=== PATIENT | male | born 2000 | race Caucasian/White ===

== ENCOUNTER 2021-08-18 11:09 | Emergency (ER) | payer MEDICAID, SELFPAY ==
[2021-08-18 11:13] VITALS: BP 154/68; PULSE 70; RESP 14; TEMP 36.6; O2SAT 98
--- NOTE | 2021-08-18 12:00 | DI.CT_ITS ---
Exam(s) CT HEAD WO EXAM: CT HEAD WO CLINICAL HISTORY: struck head, RINALDI x 3 days. TECHNIQUE: Imaging Protocol: Axial computed tomography images with coronal and sagittal reformatted images were created and reviewed COMPARISON: No exams were available for comparison FINDINGS: There are no skull fractures nor fluid in the visualized paranasal sinuses. Mucosal thickening is n oted maxillary, not associated with fluid levels therein. There is no evidence of intracranial hemorrhage, mass effect, or shift of midline structures. There are no extra-axial fluid collections. The ventricles are not enlarged or shifted and there is no blo od within the ventricular system nor within the basal cisterns. IMPRESSION: No acute intracranial findings on this noninfused CT scan of the brain. RADIATION DOSE DELIVERED: 910.41mGy.cm Total DLP DATA REPOSITORY: All CT scans at this facility are submitted to the National Radiology Data Registry (NRDR) Dose Index Registry (DIR) with the [employer] ([employer]). RADIATION OPTIMIZATION: All CT scans at this facility use at least one of these dose optimization te chniques: automated exposure control; mA and/or kV adjustment per patient size (includes targeted exa ms where dose is matched to clinical indication); or iterative reconstruction.
--- NOTE | 2021-08-18 12:12 | ED.GENADUL_ITS ---
Discharge Plan Disposition Patient Disposition: HOME Condition: Stable Discharge Details Clinical Impression: Cough, Head injury Primary Care Provider: Shelli Joyner ED Provider: Darrius Clement Home Meds and New Rx's Prescriptions: New albuterol sulfate 90 mcg/actuation aerosol powdr breath activated 2 inh inhalation Q6H PRNQty: 1 0RF Continued Mini's wort 300 mg capsule 300 mg PO DAILY cholecalciferol (vitamin D3) 10,000 UNIT tablet 10,000 unit PO Q7D ibuprofen 600 MG tablet 600 mg .Route .DM PRN0RF Discontinued albuterol sulfate [ProAir HFA] 200 PUFF HFA aerosol inhaler 2 puff Inhalation Q4H PRN PRN Discharge Instructions Instructions: Acute Cough (ED), Head Injury (ED) Additional Instructions: Chest x-ray and head CT were both unremarkable. COVID test is pending, you will be notified whether the test is positive or negative. Albuterol inhaler as directed. Mekz-qql-hsroalp medications as directed for symptomatic control. Please watch for new or worsening symptoms and return to the ER for any concerns. Otherwise I recommend contacting your primary care provider to discuss your ER visit and need for outpatient reevaluation. Medical Decision Making This is a 20-year-old male, denies significant past medical history presenting to the ER with a dry cough for the past 7 days as well as a head injury 3 days ago, now with a persistent headache. Clinically he appears well, nontoxic, neurologically intact, afebrile. Plan is to obtain head CT given his head injury and headache. Will obtain a COVID swab send out, and a chest x-ray to rule out pneumonia. Head CT and chest x-ray negative. COVID swab pending. Discussed work-up with patient. Plan to provide albuterol inhaler for his likely viral bronchitis. We did discuss treating with [id number] medication. No clear indication for antibiotic therapy Standard discharge and return precautions were provided. Patient understands, is agreeable to this plan, and has no additional questions or concerns upon discharge. This documentation was generated using [employer] system, please disregard any oddities of phrase or misspellings. Medical Records Medical records reviewed: Yes I reviewed the patient's medical records. Imaging Data Radiologic Study: Attestation: I personally reviewed and interpreted this imaging study as follows: Imaging: X-Ray Radiologist's impression: Exam(s) XR PORTABLE CHEST AP EXAM: XR PORTABLE CHEST AP CLINICAL HISTORY: cough. TECHNIQUE: 2D digital imaging was performed. COMPARISON: No exams were available for comparison FINDINGS: Single AP portable view. Heart size is upper normal. The mediastinum is not widened. Lungs are clear. No infiltrates nor obvious pleural effusions. IMPRESSION: No acute pulmonary findings on this single AP portable view of the chest. Radiologic Study #2: Attestation: I personally reviewed and interpreted this imaging study as follows: Imaging: CT Scan Radiologist's impression: EXAM: CT HEAD WO CLINICAL HISTORY: struck head, RINALDI x 3 days. TECHNIQUE: Imaging Protocol: Axial computed tomography images with coronal and sagittal reformatted images were created and reviewed COMPARISON: No exams were available for comparison FINDINGS: There are no skull fractures nor fluid in the visualized paranasal sinuses. Mucosal thickening is noted maxillary, not associated with fluid levels therein. There is no evidence of intracranial hemorrhage, mass effect, or shift of midline structures. There are no extra-axial fluid collections. The ventricles are not enlarged or shifted and there is no blood within the ventricular system nor within the basal cisterns. IMPRESSION: No acute intracranial findings on this noninfused CT scan of the brain. HPI General Mode of arrival: ambulatory . Date/Time Provider Initiated Documentation: 08/18/21 11:25 . Limitations to Documentation: no limitations . Information obtained by: patient . HPI Narrative: 20-year-old gentleman, denies significant past medical history, presents to the ER reporting a dry cough for approximately 1 week and then a head injury 3 days ago with a continuous headache since that time, worse with coughing. Patient states that he is fully vaccinated and has taken negative COVID test at home. He reports that a neighbor was recently diagnosed with bronchitis. He denies ear pain, nasal congestion, fever. He states 3 days ago he hit his head hard on a garage door, fall black, did not necessarily pass out but has had a persistent headache ever since, moderate in nature worse with coughing. Has not taken any pycz-tic-occirjr medication for his symptoms Related Data Home Medications Medication Instructions Recorded Confirmed cholecalciferol (vitamin D3) 250 10,000 unit PO Q7D 05/26/16 08/18/21 mcg (10,000 unit) tablet ibuprofen 600 mg tablet 600 mg .Route .DM PRN 05/08/17 08/18/21 Mini's wort 300 mg capsule 300 mg PO DAILY 07/13/21 08/18/21 albuterol sulfate 90 mcg/actuation 2 inh inhalation Q6H PRN #1 ea 08/18/21 breath activated powder inhaler Previous Rx's Medication Instructions Recorded ibuprofen 600 mg tablet 600 mg .Route .DM PRN 05/08/17 albuterol sulfate 90 mcg/actuation 2 inh inhalation Q6H PRN #1 ea 08/18/21 breath activated powder inhaler Allergies Allergy/AdvReac Type Severity Reaction Status Date / Time No Known Allergies Allergy Unverified 08/18/21 11:16 General Stated Complaint: Headache EMELY: 3 Review of Systems Constitutional Constitutional: Reports headache(s) and Denies weakness Eyes Eyes: Denies change in vision ENT Ears, Nose, Mouth, and Throat: Reports headache(s), Denies neck pain and Denies sore throat Cardiovascular Cardiovascular: Denies chest pain and Denies dyspnea Respiratory Respiratory: Reports cough and Denies dyspnea Gastrointestinal Gastrointestinal: Denies abdominal pain, Denies nausea and Denies vomiting Musculoskeletal Musculoskeletal: Denies back pain, Denies neck pain, Denies numbness and Denies tingling Integumentary/Breasts Skin/Breast: Denies rash Neurologic Neurologic: Reports headache(s), Denies numbness, Denies tingling and Denies weakness PFSH All Active Problems (Updated 08/18/21 @ 13:08 by OCTAVIO Matute) Cough (Acute) Head injury (Acute) Medical History Abnormal posture ADD (attention deficit disorder) Allergic rhinitis Asthma Costochondritis Depression Elevated blood pressure reading Hemorrhoid Migraines Obesity Perioral dermatitis Sleep disorder Thumb fracture Urinary urgency Vitamin D deficiency Social History Smoking/Tobacco Use Status: Never Smoking risk assessment performed?: Yes Alcohol Intake: current Alcohol Intake frequency: holidays/special occasions only Alcohol type: beer and hard liquor Drug use: Daily Substance use type: marijuana Do you feel safe at home: Yes Do you feel safe in your relationship?: Yes Exam Const General: cooperative, healthy appearing, comfortable and no acute distress Orientation: alert, awake and oriented x3 HENMT Head: normal to inspection, normocephalic and atraumatic General nose exam: external nose normal Face and sinus: normal facial exam Mouth: moist mucous membranes Throat: posterior oropharynx normal Eyes General: appearance normal, both eyes and all related structures Conjunctivae: conjunctivae normal Neck Neck: normal visual inspection, full ROM, trachea midline and supple Resp Effort & Inspection: normal respiratory effort, able to speak in complete sentences and cough (Mild, dry) Auscultation: wheezes (Rare, scattered throughout. Clear with cough) Cardio Rate: regular rate Rhythm: regular rhythm GI Palpation: soft and nontender Back/Spine/Pelvis Back: No back tenderness Skin General skin exam: no rashes or lesions noted Neuro General: patient alert, patient awake, patient oriented x3, moves all extremities and no focal motor deficits Cognition: normal cognition Speech: speech normal Gait: normal gait Motor: muscle tone normal throughout Sensory Exam: no sensory deficits noted Extrem General: normal to inspection, full ROM, capillary refill normal, no pedal edema and no calf tenderness Psych Appearance: grossly normal Mental Status: mental status grossly normal Course Vital Signs Vital signs: Vital Signs Temperature 36.6 C 08/18/21 11:13 Pulse 70 08/18/21 11:13 Respiratory Rate 14 08/18/21 11:13 Blood Pressure 154/68 H 08/18/21 11:13 Pulse Oximetry 98 08/18/21 11:13 Temperature 36.6 C 08/18/21 11:13 Temperature Source Temporal Artery Scan 08/18/21 11:13 Pulse 70 08/18/21 11:13 Respiratory Rate 14 08/18/21 11:13 Respiratory Effort Non-Labored 08/18/21 11:16 Blood Pressure 154/68 H 08/18/21 11:13 Blood Pressure Position Supine 08/18/21 11:13 Pulse Oximetry 98 08/18/21 11:13 Oxygen Delivery Method Room Air 08/18/21 11:13 Oxygen Flow Rate 0 08/18/21 11:13 Pain Level 4 08/18/21 11:16 PAWSS Have you Been Recently Intoxicated or Drunk Within the Last 30 days?: Yes Have you Ever Experienced Previous Episodes of Alcohol Withdrawal?: No Have you ever Experienced Withdrawal Seizures?: No Have you ever Experienced Delirium Tremens(DT)s?: No Have you ever undergone Alcohol Rehabilitation Treatment (i.e, inpt ot outpatient treatment programs)?: No Have you ever Experienced Blackouts?: No Have you ever Combined Alcohol with other Downers within the last 90 days?: No Have you ever Combined Alcohol with any other Substance of Abuse during the last 90 days?: No Positive Blood Alcohol level on Presentation? [PCS.BAL]: No Evidence of Increased Autonomic Activity (i.e. HR>120, tremor, sweating, agitation, nausea)?: No Result: 1
--- NOTE | 2021-08-18 12:48 | DI.RAD_ITS ---
Exam(s) XR PORTABLE CHEST AP EXAM: XR PORTABLE CHEST AP CLINICAL HISTORY: cough. TECHNIQUE: 2D digital imaging was performed. COMPARISON: No exams were available for comparison FINDINGS: Single AP portable view. Heart size is upper normal. The mediastinum is not widened. Lungs are clear. No infiltrates nor obvious pleural effusions. IMPRESSION: No acute pulmonary findings on this single AP portable view of the chest. DATA REPOSITORY: RADIATION DOSE DELIVERED: All CT scans at this facility use at least one of these dose optimization techniques: automated exposure control; mA and/or kV adjustment per patient size (includes targeted e xams where dose is matched to clinical indication); or iterative reconstruction.
[2021-08-19 15:22] LABS: COVID-19 RT-PCR UVMMC Result Negative (Negative)
== END 2021-08-18 13:17 | disposition home or self-care (01) ==
PROVIDERS: Emergency Provider Physician Assistant; PCP Physician Assistant Medical
DX: R05.1 Acute cough (principal); S09.8XXA Other specified injuries of head, initial encounter
CPT/HCPCS: 99283; 99284; U0003; 70450; 71045

== ENCOUNTER 2023-06-11 10:15 | Emergency (ER) | payer MEDICAID, SELFPAY ==
[2023-06-11 10:26] VITALS: BP 131/56; PULSE 82; RESP 16; TEMP 36.6; O2SAT 100
--- NOTE | 2023-06-11 10:27 | ED.GENADUL_ITS ---
Discharge Plan Disposition Patient Disposition: Home Condition: Stable Discharge Details Clinical Impression: Tick bite of axillary region Primary Care Provider: Shelli Joyner ED Provider: Tatiana Fleming Home Meds and New Rx's Prescriptions: No Action ibuprofen 600 mg tablet 600 mg PO .DM PRN Mini's wort 300 mg capsule 300 mg PO DAILY cholecalciferol (vitamin D3) 10,000 UNIT tablet 10,000 unit PO Q7D albuterol sulfate 90 mcg/actuation aerosol powdr breath activated 2 inh inhalation Q6H PRNQty: 1 0RF Discharge Instructions Instructions: Tick Bite (ED) Additional Instructions: You were given 200mg Doxycycline as a prevenative treatment for the tick bite. Please keep the area clean. Return to the ER for any body aches, chest pain, spreading rash, fever or concerns. Follow up with primary care provider in 3-5 days. Return to ED sooner if any worsening or concerns. Please take Tylenol or Ibuprofen with food every 4-6 hours as needed for pain and swelling. Referrals: Shelli Joyner [Primary Care Provider] - Return if symptoms worsen Discharge Data Discharge Date/Time-TO BE ENTERED AT DEPARTURE: 06/11/23 10:38 HPI General Mode of arrival: ambulatory . Date/Time Provider Initiated Documentation: 06/11/23 10:24 . Limitations to Documentation: no limitations . Information obtained by: patient, RN notes reviewed and old records reviewed . HPI Narrative: Patient here with a tick embedded behind his right axilla. There is small surrounding redness. Reports he was working out in the yard today. History of ADD migraines asthma depression. Will treat prophylactically with 200 mg doxycycline. Discussed on home care. Related Data Home Medications Medication Instructions Recorded Confirmed cholecalciferol (vitamin D3) 250 10,000 unit PO Q7D 05/26/16 06/11/23 mcg (10,000 unit) tablet Mini's wort 300 mg capsule 300 mg PO DAILY 07/13/21 06/11/23 albuterol sulfate 90 mcg/actuation 2 inh inhalation Q6H PRN #1 ea 08/18/21 06/11/23 breath activated powder inhaler ibuprofen 600 mg tablet 600 mg PO .DM PRN 10/19/21 06/11/23 Previous Rx's Medication Instructions Recorded albuterol sulfate 90 mcg/actuation 2 inh inhalation Q6H PRN #1 ea 08/18/21 breath activated powder inhaler Allergies Allergy/AdvReac Type Severity Reaction Status Date / Time No Known Allergies Allergy Unverified 06/11/23 10:25 General EMELY: 3 Review of Systems All systems reviewed & are unremarkable except as noted in HPI and below Integumentary/Breasts Skin/Breast: Reports as per HPI, Reports erythema, Reports rash, Reports skin pain, Reports skin swelling and Reports other (Tick bite behind right axilla) Exam Skin Rashes: rashes noted macules right posterior axilla Trauma: puncture Full body images: 2 1. Embedded tick Medical Decision Making Patient here with a tick embedded behind his right axilla. There is small surrounding redness. Reports he was working out in the yard today. History of ADD migraines asthma depression. Will treat prophylactically with 200 mg doxycycline. Discussed on home care. No other rashes or complaints at this time, tick was removed by staff genetic counselor in triage. Quality:SDOH Health Related Social Needs: 2 No Data to Display PFSH All Active Problems (Updated 06/11/23 @ 10:31 by Tatiana Fleming NP) Tick bite of axillary region (Acute) Pelvic pain in male (Acute) Medical History Allergic rhinitis ADD (attention deficit disorder) Abnormal posture Obesity Costochondritis Migraines Asthma Thumb fracture Elevated blood pressure reading Sleep disorder Vitamin D deficiency Perioral dermatitis Urinary urgency Depression Hemorrhoid Social History Smoking/Tobacco Use Status: Never Smoking risk assessment performed?: Yes Alcohol Intake: current Alcohol Intake frequency: holidays/special occasions only Alcohol type: beer and hard liquor Drug use: Daily Substance use type: marijuana Housing: house Do you feel safe at home: Yes Do you feel safe in your relationship?: Yes
[2023-06-11] MEDS: Doxycycline Hyclate 100 MG CAP 200 MG PO (10:35)
== END 2023-06-11 10:38 | disposition home or self-care (01) ==
LOC: ER 10:41
PROVIDERS: Emergency Provider Registered Nurse Emergency; PCP Physician Assistant Medical
DX: S40.861A Insect bite (nonvenomous) of right upper arm, initial encounter (principal); W57.XXXA Bitten or stung by nonvenomous insect and other nonvenomous arthropods, initial encounter
CPT/HCPCS: 99282; 99283

== ENCOUNTER 2024-01-08 01:38 | Outpatient (CLI) | payer MEDICAID, SELFPAY ==
--- NOTE | 2024-01-08 | DI.US_ITS ---
Exam(s) US SCROTUM EXAM: US SCROTUM CLINICAL HISTORY: LLQ pain, R10.32. TECHNIQUE: Scrotal ultrasound performed using grayscale, color-flow and spectral Doppler analysis. COMPARISON: No exams were available for comparison FINDINGS: Right testicle: 4.9 x 2.3 x 3.2 cm Echogenicity: Normal. Contour: Smooth. Mass: None seen. Microlithiasis: None. Hydrocele: None. Variocele: None. Hernia: No peristalsing bowel loop identified. Epididymis: There is a small spermatocele measuring 0.2 cm. Left testicle: 4.9 x 2.2 x 3.2 cm Echogenicity: Normal. Contour: Smooth. Mass: None seen. Microlithiasis: None. Hydrocele: There is a small hydrocele measuring 2.6 x 0.4 x 1.6 cm. Variocele: None. Hernia: No peristalsing bowel loop identified. Epididymis: Normal. DOPPLER: Color: Symmetric and uniform, no hyperemia. IMPRESSION: 1. Unremarkable testicles. 2. Small left hydrocele. DATA REPOSITORY:
--- NOTE | 2024-01-08 | DI.US_ITS ---
Exam(s) US HERNIA EXAM: US HERNIA CLINICAL HISTORY: LLQ pain, R10.32. TECHNIQUE: Ultrasound was performed using standard protocol. COMPARISON: No exams were available for comparison FINDINGS: Sonographic assessment utilizing grayscale and color Doppler imaging was performed and targeted to th e area of clinical concern. There does appear to be a small fat containing left inguinal hernia present. IMPRESSION: Small fat containing left inguinal hernia. DATA REPOSITORY:
== END 2024-01-08 01:58 ==
LOC: DI 01:39
PROVIDERS: PCP Physician Assistant Medical; Visit Provider Physician Assistant Medical
DX: K40.90 Unilateral inguinal hernia, without obstruction or gangrene, not specified as recurrent (principal)
CPT/HCPCS: 76857; 76870